=== PATIENT | female | born 2000 | race Two or more races ===

== ENCOUNTER 2024-08-13 21:22 | Emergency (ER) | payer MEDICAID, SELFPAY ==
[2024-08-13 21:23] VITALS: BMI 25.8
[2024-08-13 22:13] VITALS: BP 133/90; PULSE 66; RESP 18; TEMP 36.9; O2SAT 98
--- NOTE | 2024-08-13 22:29 | EDNOTE_ITS ---
<Statement entered by Aimee Cervantes MD - 08/14/24 05:24> As co-signing physician, I was present and available for consult prn. I concur with the plan and care as documented by the midlevel provider. ED Eye Problem RME/HPI General Chief complaint: Eye Problems Stated complaint: Left eye pain after pt. was attempting eyelash ext Time Seen by Provider: 08/13/24 22:20 Source: patient Arrival date/time: 08/13/24 21:22 23-year-old female presents emergency department complaining of left eye pain and irritation after she was attempting to apply a eyelash extension. Patient reports thinks she might have caught something in her eye. Patient denies any vision changes or any other associated symptoms. Mode of arrival: ambulatory Limitations: no limitations Related Data Home Medications ?Medication ?Instructions ?Recorded ?Confirmed vitamin-ferrous fumarate 1 tab PO QDAY 01/14/23 28 mg iron-folic acid 800 mcg tablet ( Vitamins with Minerals) Previous Rx's ?Medication ?Instructions ?Recorded erythromycin 5 mg/gram (0.5 %) eye 0.5 inch ophthalmic (eye) QID 5 08/14/24 ointment days #3.5 grams ibuprofen 600 mg tablet 600 mg PO Q8H PRN pain #20 t abs 08/14/24 Allergies Allergy/AdvReac Type Severity Reaction Status Date / Time No Known Allergies Allergy Verified 01/14/23 19:14 Review of Systems Review of Systems Systems Reviewed: All systems reviewed, normal except as documented Constitutional Constitutional: Reports system reviewed and no additional complaints, except as documented, Denies body ache(s), Denies chills and Denies fever(s) Eyes Eyes: Reports system reviewed and no additional complaints, except as documented, Denies change in vision, Reports irritation and Reports eye pain ENT Ears, Nose, Mouth, and Throat: Reports system reviewed and no additional complaints, except as documented, Denies disequilibrium, Denies dizziness, Denies sore throat and Denies vertigo Cardiovascular Cardiovascular: Reports system reviewed and no additional complaints, except as documented, Denies chest pain and Denies dyspnea Respiratory Respiratory: Reports system reviewed and no additional complaints, except as documented, Denies chest congestion, Denies cough and Denies dyspnea Gastrointestinal Gastrointestinal: Reports system reviewed and no additional complaints, except as documented, Denies abdominal pain, Denies nausea and Denies vomiting Musculoskeletal Musculoskeletal: Reports system reviewed and no additional complaints, except as documented, Denies abnormal gait and Denies arthralgias Integumentary/Breasts Skin/Breast: Reports system reviewed and no additional complaints, except as documented, Denies erythema, Denies rash and Denies wounds Neurologic Neurologic: Reports system reviewed and no additional complaints, except as documented, Denies abnormal gait, Denies disequilibrium, Denies dizziness and Denies vertigo Past Medical History Social History SMOKING STATUS: Never smoker ED Exam General Limitations: Present no limitations General appearance: Present alert and in no apparent distress Head Head exam: Present atraumatic Eye Eye exam: Present normal appearance, PERRL, EOMI and scleral icterus Expanded Eye Exam Eyelids: left: swelling eyelids and right: normal inspection Pupils: Bilateral: regular, round and reactive Sclera/Conjunctival: left: injection and right: normal inspection ENT ENT exam: Present normal exam, normal oropharynx and mucous membranes moist Neck Neck exam: Present normal inspection, full ROM and trachea midline Chest Chest inspection: Present normal inspection and symmetric chest wall rise Respiratory Respiratory exam: Present normal lung sounds bilaterally Cardiovascular Cardiovascular exam: Present regular rate, normal rhythm and normal heart sounds Abdominal Exam Abdominal exam: Present soft and normal bowel sounds Extremities Exam Extremities exam: Present normal inspection and full ROM Back Exam Back exam: Present normal inspection and full ROM Neurological Exam Neurological exam: Present alert, oriented X3 and CN II-XII intact Psychiatric Psychiatric exam: Present normal affect and normal mood Skin Skin exam: Present warm, dry, intact and normal color Course Quality Measures none Orders Category Date Time Status Rosario Lamp to Bedside X1 Care 08/13/24 22:28 Completed Erythromycin Op Oint 0.5% Med 08/14/24 00:03 Discontinued 1 gm LEFT EYE X1 ONE Fluorescein Sodium [[id number]] Med 08/13/24 22:28 Discontinued 1 mg LEFT EYE X1 ONE HYDROcodone*/APAP 5/325 [Meredith 5/325] Med 08/14/24 00:17 Discontinued 1 tab PO X1 ONE TETRACAINE Op Bhavna 0.5% [Pontocaine Op Bhavna 0.5%] Med 08/13/24 22:28 Discontinued 1 drop LEFT EYE X1 ONE Vital Signs Vital signs: Vital Signs Temperature 98.4 F 08/13/24 22:13 Pulse Rate 66 08/13/24 22:13 Respiratory Rate 18 02/23/25 22:13 Blood Pressure 133/90 H 08/13/24 22:13 Pulse Oximetry (%) 98 08/13/24 22:13 Oxygen Delivery Method Room Air 08/13/24 22:13 98% room air within normal limits Procedures -ED Rosario Lamp Exam Left eye: Flourescein uptake:: Yes Rosario Lamp Findings: Corneal abrasion Eye MDM Narrative MDM Narrative:: 23-year-old female presents emergency department complaining of left eye pain and irritation after she was attempting to apply a eyelash extension. Patient reports thinks she might have caught something in her eye. Patient denies any vision changes or any other associated symptoms. Left eye scleral injection with no reported vision changes. Left eye Wood lamp exam positive for corneal abrasion. Patient treated with erythromycin as she is none contact lens user. Strict instructions given to patient to have close follow-up with insurance underwriter and return immediately to emergency department for any worsening symptoms such as change in vision or as needed. Patient data External records reviewed:: [facility] previous records Clinical information provided by:: patient Social determinants that could affect healthcare access:: none Patient has the following chronic illnesses:: None How is presenting disease/condition affected by chronic disease/condition?: no chronic disease Evaluation data The following diagnostics were reviewed and interpreted by me:: other (specify) (Rosario lamp) Lab and/or radiology exams considered but not ordered:: Ordered Interpretation Summary: Interpreted me Medications / Prescriptions Medications or Prescriptions considered but not ordered:: Ordered Medication administrations:: Medication Administration History Discontinued Medications Hydrocodone Bitart/Acetaminophen (Hydrocodone/Apap 5/325 Tablet) 1 tab PO X1 ONE Stop: 08/14/24 00:18 Last Admin: 08/14/24 00:24 Dose: 1 tab Documented By: EPHRAIM Erythromycin (Erythromycin Op Oint 0.5% 1 Gm Packet) 1 gm LEFT EYE X1 ONE Stop: 08/14/24 00:04 Last Admin: 08/14/24 00:11 Dose: 1 gm Documented By: EPHRAIM Co-signed By: KENYETTA Fluorescein Sodium (Fluorescein Sod 1 Mg Strp) 1 mg LEFT EYE X1 ONE Stop: 08/13/24 22:29 Last Admin: 08/13/24 22:37 Dose: 1 mg Documented By: EPHRAIM Tetracaine HCl (Tetracaine Pf Op Bhavna 0.5% 4 Ml Drpette) 1 drop LEFT EYE X1 ONE Stop: 08/13/24 22:29 Last Admin: 08/13/24 22:37 Dose: 1 drop Documented By: KF Given Consultations Consultation(s) initiated? (list below): No Diagnosis Eye Problem Differential Diagnosis: corneal abrasion, conjunctivitis, acute iritis, hyphema, periorbital cellulitis, subconjunctival hemorrhage, glaucoma and corneal ulcer Most likely diagnosis given after review of the tests above:: Corneal abrasion Admission Indicated Admission indicated?: not indicated Admission Request Was there a request for admission?: No Disposition Plan Disposition Plan: Discharge Discharge Attestation Discharge Attestation: The patient and all family members were given an opportunity to ask questions and understood the discharge instructions. Discharge instructions specifically effects, indications for sooner follow up or return to the emergency department, and the expected course of current diagnosis. Patient condition: Stable Discharge Plan Plan Patient Disposition: HOME (Self Care) Disposition Comment: Stable Prescriptions/Referrals Prescriptions/Med Rec: New erythromycin 5 mg/gram (0.5 %) ointment 0.5 inch ophthalmic (eye) QID 5 Days Qty: 3.5 0RF ibuprofen 600 mg tablet 600 mg PO Q8H PRN (Reason: pain) Qty: 20 0RF No Action vit-iron fum-folic ac [ Vitamin with Minerals] 28 mg iron- 800 mcg Tablet 1 tab PO QDAY Referrals: No Primary/Family,Physician [Referring Provider] - In 1 week Problem List Clinical Impression: Corneal abrasion Patient/Caregiver Discharge Instructions Education Materials: ED Corneal Abrasion Additional Instructions: Apply medication as prescribed. Take Tylenol or ibuprofen as needed for pain. Follow-up insurance underwriter in 24 to 48 hours as discussed. Follow-up with primary care provider as well upon discharge. Return to emergency department for any worsening symptoms or as needed. Print Language: Yoruba Stand Alone Forms: [employer] Award Info., Work/School Release, Patient Portal Info Letter PA/SARAHY Supervising Physician MALCOM/SARAHY Supervising Physician: Dr. Cervantes
[2024-08-13] MEDS: TETRACAINE PF OP SOL 0.5% 4 ML DRPETTE 1 DROP LEFT EYE (22:37)
[2024-08-13] MEDS: FLUORESCEIN SOD 1 MG STRP LEFT EYE (22:37)
[2024-08-14] MEDS: Erythromycin Op Oint 0.5% 1 GM PACKET LEFT EYE (00:11)
[2024-08-14] MEDS: HYDROcodone/APAP 5/325 TABLET 1 TAB PO (00:24)
== END 2024-08-14 01:08 | disposition home or self-care (01) ==
PROVIDERS: Emergency Provider Emergency Medicine; PCP Family Medicine
DX: S05.02XA Injury of conjunctiva and corneal abrasion without foreign body, left eye, initial encounter (principal); X58.XXXA Exposure to other specified factors, initial encounter
CPT/HCPCS: 99283; A9270

== ENCOUNTER → 2024-10-25 | Outpatient (CLI) | payer OTHER, SELFPAY ==
--- NOTE | 2024-10-25 12:24 | XR_ITS ---
Examination: Hand, right 3 views Technique: Hand AP, oblique, lateral 3 views Date and time of exam: October 25, 2024 1302 hours INDICATIONS: Work injury to the hand today with pain third and fourth digits FINDINGS: Adequate bone density No acute fracture No dislocation IMPRESSION: No acute fracture
== END | disposition home or self-care (01) ==
PROVIDERS: Referring Provider Physician Assistant; Visit Provider Physician Assistant
DX: S69.91XA Unspecified injury of right wrist, hand and finger(s), initial encounter (principal); X58.XXXA Exposure to other specified factors, initial encounter
CPT/HCPCS: 73130